=== PATIENT | male | born 1935 | race Caucasian/White ===

== ENCOUNTER 2016-10-01 16:24 | Inpatient (IN) | payer MEDICARE, MEDICAID ==
--- NOTE | 2016-10-01 16:46 | ED Physician Chart ---
Chief Complaint/HPI - Patient Information Date Seen:: 10/01/16 Time Seen:: 16:30 Chief Complaint:: urinary frequency and restless History of Present Illness:: pt sent from [place] for allegedly having urineary frequency and also has had a pattern of difficult behavior lately. he seems to be somewhat demented and is not oriented. he denies acute pain. he says he has had urine frequency. no known fever or gi distress. no hx of trauma or acute mental status change Allergies:: Allergies Allergy/AdvReac Type Severity Reaction Status Date / Time No Known Allergies Allergy Verified 05/20/16 22:23 Historian:: Patient Review of Systems - Review of Systems General/Constitutional: No fever, No chills, No weight loss, No weakness, No diaphoresis, No edema, No loss of appetite Skin: No skin lesions, No rash, No bruising Head: No headache, No light-headedness Eyes: No loss of vision, No pain, No diplopia ENT: No earache, No nasal drainage, No sore throat, No tinnitus Neck: No neck pain, No swelling, No thyromegaly, No stiffness, No mass noted Cardio Vascular: No chest pain, No palpitations, No PND, No orthopnea, No edema Pulmonary: No SOB, No cough, No sputum, No wheezing GI: No nausea, No vomiting, No diarrhea, No pain, No melena, No hematochezia, No constipation, No hematemesis G/U: No dysuria, No frequency, No hematuria Musculoskeletal: No bone or joint pain, No back pain, No muscle pain Endocrine: No polyuria, No polydipsia Psychiatric: No prior psych history, No depression, No anxiety, No suicidal ideation Hematopoietic: No bruising, No lymphadenopathy Allergic/Immuno: No urticaria, No angioedema Neurological: No syncope, No focal symptoms, No weakness, No paresthesia, No headache, No seizure, No dizziness, Confusion (dementia?), No vertigo Past Medical History - Past Medical History Past Medical History: Dementia, Other (?) Social History: Care Facility Psychiatricy History: Dementia Family Medical History - Family Member Daughter History Unknown: Yes Mother History Unknown: Yes Physical Exam - Physical Examination General/Constitutional: Awake, Well-developed, well-nourished, Alert, No distress, Non-toxic appearing Head: Atraumatic Eyes: Lids, conjuctiva normal, PERRL, EOMI Skin: Nl inspection, No rash, No skin lesions, No ecchymosis, Well hydrated, No lymphadenopathy ENMT: External ears, nose nl, Nasal exam nl, Lips, teeth, gums nl Neck: Nontender, Full ROM w/o pain, No JVD, No nuchal rigidity, No bruit, No mass, No stridor Respiratory: Nl effort/Exclusion, Clear to Auscultation, No Wheeze/Rhonchi/Rales Cardio Vascular: RRR, No murmur, gallop, rubs, NL S1 S2 GI: No tenderness/rebounding/guarding, No organomegaly, No hernia, Normal BS's, Nondistended, No mass/bruits, No McBurney tenderness : No CVA tenderness Extremities: No tenderness or effusion, Full ROM, normal strength in all extremities, No edema, Normal digits & nails Neuro/Psych: Alert/oriented, DTR's symmetric, Normal sensory exam, Normal motor strength, Mood normal, No focal deficits Other Neuro/Psych comments:: pt seems confused..? some dementia pt lays w b eyes closed and does not acknowldge me or respond to my qs (even in iranian)..he does however answer qs for the tech who repeats rachael qs beside me however even her interpretation is he doesnt make sense at least 1/2 of the time. Misc: normal gait, Normal back, No paraspinal tenderness Labs/Radiology/EKG Results - Lab Results Results: Laboratory Tests 10/01/16 10/01/16 10/01/16 16:40 16:40 16:40 WBC 11.9 H RBC 4.78 Hgb 13.5 Hct 41.5 MCV 86.9 MCH 28.3 MCHC Differential 32.6 RDW 15.0 Plt Count 313 MPV 8.6 Neutrophils % 64.6 Lymphocytes % 28.0 Monocytes % 5.8 Eosinophils % 0.9 Basophils % 0.7 Sodium 138 Potassium 3.6 Chloride 101 Carbon Dioxide 26.2 Anion Gap 14.4 BUN 19 Creatinine 0.9 Est GFR ( Amer) TNP Est GFR (Non-Af Amer) TNP BUN/Creatinine Ratio 21.1 Glucose 114 H Calcium 9.7 Total Bilirubin 1.4 H AST 11 L ALT 8 Alkaline Phosphatase 51 Total Protein 7.2 Albumin 4.1 L Globulin 3.1 Albumin/Globulin Ratio 1.3 Triglycerides 144 Cholesterol 213 H LDL Cholesterol Direct 151 HDL Cholesterol 37 TSH 3.70 Urine Source Urine Color Urine Clarity Urine pH Ur Specific [place] Urine Protein Urine Glucose (UA) Urine Ketones Urine Blood Urine Nitrate Urine Bilirubin Urine Urobilinogen Ur Leukocyte Esterase Urine RBC Urine WBC Ur Epithelial Cells Urine Bacteria 10/01/16 17:20 WBC RBC Hgb Hct MCV MCH MCHC Differential RDW Plt Count MPV Neutrophils % Lymphocytes % Monocytes % Eosinophils % Basophils % Sodium Potassium Chloride Carbon Dioxide Anion Gap BUN Creatinine Est GFR ( Amer) Est GFR (Non-Af Amer) BUN/Creatinine Ratio Glucose Calcium Total Bilirubin AST ALT Alkaline Phosphatase Total Protein Albumin Globulin Albumin/Globulin Ratio Triglycerides Cholesterol LDL Cholesterol Direct HDL Cholesterol TSH Urine Source [place] Urine Color YELLOW Urine Clarity CLOUDY Urine pH 6.0 Ur Specific [place] 1.020 Urine Protein 100 H Urine Glucose (UA) NEGATIVE Urine Ketones TRACE Urine Blood MODERATE H Urine Nitrate NEGATIVE Urine Bilirubin NEGATIVE Urine Urobilinogen 1.0 Ur Leukocyte Esterase MODERATE H Urine RBC 10-25 H Urine WBC 50-100 H Ur Epithelial Cells NONE SEEN Urine Bacteria MODERATE - EKG Interpretations EKG Time:: 17:00 Rate & Rhythm: nsr 92 [place]: 7 Intervals: no st/t changes Comments:: wnl ED Septic Shock - . Is Septic Shock (SBP<90, OR Lactate>4 mmol\L) present?: No Reassessment (Disposition) - Reassessment Reassessment:: case dw dr faith..will admit for uti/agitation...asked if he can call back in 20 min. Reassessment Condition:: Unchanged - Diagnosis Diagnosis:: 1 uti 2 agitation - Patient Disposition Condition at Disposition:: Unchanged
[2016-10-01 16:58] LABS: % BASOPHILS 0.7 % (0.0-2.0); % EOSINOPHILS 0.9 % (0.0-5.0); % MONOCYTES 5.8 % (2.0-10.0); % NEUTROPHILS 64.6 % (40.0-80.0); HEMATOCRIT 41.5 % (39.0-49.0); HEMOGLOBIN 13.5 gm/dL (12.6-17.4); MEAN CELL VOLUME 86.9 fl (80-99); MEAN CORPUSCULAR HEMOGLOBIN 28.3 pg (27.0-31.0); MEAN CORPUSCULAR HGB CONC 32.6 pg (28.0-36.0); MEAN PLATELET VOLUME 8.6 fl; NEUTROPHILE ABSOLUTE 7.7 Th/cmm (1.8-8.0); PLATELET COUNT 313 Th/cmm (150-400); RED BLOOD COUNT 4.78 Mil/cmm (3.80-5.80); WHITE BLOOD COUNT 11.9 Th/cmm (4.8-10.8)
[2016-10-01 17:05] LABS: ALB/GLOB RATIO 1.3 (1.0-1.8); ALKALINE PHOSPHATASE 51 U/L (34-104); ANION GAP 14.4 (7.0-16.0); BILIRUBIN,TOTAL 1.4 mg/dL (0.3-1.0); BUN - UREA NITROGEN 19 mg/dL (7-25); BUN/CREATININE RATIO 21.1; CALCIUM SERUM 9.7 mg/dL (8.6-10.3); CARBON DIOXIDE 26.2 mEq/L (21.0-31.0); CHLORIDE 101 mEq/L (98-107); CHOLESTEROL 213 mg/dL (<200); CREATININE - SERUM 0.9 mg/dL (0.7-1.3); GLUCOSE 114 mg/dL (70-105); POTASSIUM SERUM 3.6 mEq/L (3.5-5.1); SGOT 11 U/L (13-39); SGPT/ALT 8 U/L (7-52); SODIUM SERUM 138 mEq/L (136-145); TRIGLYCERIDES 144 mg/dL (<150)
[2016-10-01 18:09] LABS: URINE BILIRUBIN NEGATIVE (NEGATIVE); URINE BLOOD MODERATE (NEGATIVE); URINE COLOR YELLOW; URINE GLUCOSE (UA) NEGATIVE (NEGATIVE); URINE KETONE TRACE mg/dL (NEGATIVE); URINE PROTEIN 100 mg/dL (NEGATIVE)
[2016-10-01 18:12] LABS: URINE BACTERIA MODERATE /hpf (NONE SEEN); URINE EPITHELIAL CELLS NONE SEEN /lpf (FEW); URINE WBC 50-100 /hpf (0-5)
[2016-10-01] MEDS ORDERED: D5-0.9%NS 1,000 ML IV SCH (21:00)
[2016-10-01] MEDS ORDERED: Magnesium Hydroxide (MOM) 30 mL UDC PO PRN (21:01)
[2016-10-01] MEDS: INSULIN ASPART SLIDING SCALE 100 UNITS/ML UNIT SUBQ SCH (22:02)
[2016-10-01 22:43] VITALS: BP 136/80
--- NOTE | 2016-10-02 04:57 | Admit Criteria Form ---
Admit Criteria Forms - Admit Criteria Diagnosis: URINARY COMPLICATIONS Clinical Indications for Inpatient Care (Place 'X' for any and all applicable criteria): Ongoing inpatient care may be indicated for urinary complications with ANY ONE of the following: [X ]I. Urinary tract infection requiring inpatient care as indicated by ANY ONE of the following(8)(19)(20): [ ]a) Severe symptoms (eg, high fever, severe pain) [ ]b) Vomiting or dehydration requiring ongoing inpatient care [X ]c) IV antibiotic needs that cannot be managed at lower level of care [ ]d) Hemodynamic instability [ ]e) Obstruction of collecting system by stone or tumor [ ]II. Urinary retention requiring drainage or surgery (3)(4)(5)(17)(18) [ ]III. Renal failure (Use Renal Failure Criteria for further information.) [ ]IV. Oliguria(30) [ ]V. Post obstructive diuresis requiring close monitoring of urine output and intravenous compensation for excessive fluid losses(33) Extended stay beyond goal length of stay for primary condition may be needed until ALL of the following are present(3)(4)(5)(8): [ ]a) Renal function (creatinine) at baseline, or daily decreases in creatinine consistent with renal function return [ ]b) Voiding adequately or with urinary catheter or percutaneous suprapubic tube and management regimen in place that is performable at lower level of care. [ ]c) Urine output adequate [ ]d) Fever absent or resolving [ ]e) Infection absent or treatable at next level of care The original [employer] content created by [employer] has been revised. The portions of the content which have been revised are identified through the use of italic text or in bold, and [facility] has neither reviewed nor approved the modified material. All other unmodified content is copyright [employer] [facility] [employer] Please see references footnoted in the original [facility] [employer] edition 2016 Admit Criteria Met?: Yes
[2016-10-02 06:02] LABS: % BASOPHILS 0.9 % (0.0-2.0); % EOSINOPHILS 1.1 % (0.0-5.0); % LYMPHOCYTES 25.6 % (20.0-50.0); % MONOCYTES 8.9 % (2.0-10.0); % NEUTROPHILS 63.5 % (40.0-80.0); HEMATOCRIT 39.4 % (39.0-49.0); HEMOGLOBIN 13.2 gm/dL (12.6-17.4); MEAN CELL VOLUME 86.3 fl (80-99); MEAN CORPUSCULAR HEMOGLOBIN 28.8 pg (27.0-31.0); MEAN CORPUSCULAR HGB CONC 33.4 pg (28.0-36.0); MEAN PLATELET VOLUME 8.9 fl; NEUTROPHILE ABSOLUTE 5.9 Th/cmm (1.8-8.0); PLATELET COUNT 283 Th/cmm (150-400); RED BLOOD COUNT 4.57 Mil/cmm (3.80-5.80); RED CELL DISTRIBUTION WIDTH 15.2 % (11.5-20.0)
[2016-10-02 06:14] LABS: WHITE BLOOD COUNT 9.3 Th/cmm (4.8-10.8)
[2016-10-02 06:31] LABS: ALB/GLOB RATIO 1.2 (1.0-1.8); ALKALINE PHOSPHATASE 45 U/L (34-104); ANION GAP 8.3 (7.0-16.0); BILIRUBIN,TOTAL 1.5 mg/dL (0.3-1.0); BUN - UREA NITROGEN 16 mg/dL (7-25); CARBON DIOXIDE 27.3 mEq/L (21.0-31.0); CHLORIDE 106 mEq/L (98-107); CREATININE - SERUM 0.8 mg/dL (0.7-1.3); GLUCOSE 128 mg/dL (70-105); POTASSIUM SERUM 3.6 mEq/L (3.5-5.1); SGOT 9 U/L (13-39); SGPT/ALT 6 U/L (7-52); SODIUM SERUM 138 mEq/L (136-145)
[2016-10-02] MEDS: INSULIN ASPART SLIDING SCALE 100 UNITS/ML UNIT SUBQ SCH (06:56)
[2016-10-02] MEDS: Multivitamin w/ Minerals Tab PO SCH (09:28)
[2016-10-02 14:19] LABS: HEP B CORE IGM Negative (Negative); HEP C ANTIBODY <0.1 s/co ratio (0.0-0.9)
--- NOTE | 2016-10-02 15:51 | History & Physical ---
ADMIT DATE: 10/01/2016 PATIENT IDENTIFICATION: The patient is an 81-year-old male. CHIEF COMPLAINT: Sent to Emergency Room for increased frequency of urination and restlessness. HISTORY OF PRESENT ILLNESS: An 81-year-old male who resides at [facility], has a diagnosis of Parkinson disease, coronary artery disease, detrusor instability with BPH, anxiety, depression, Alzheimer's dementia noted by nursing staff that the patient was extremely agitated and having increased frequency of urination. The patient was advised to go to Emergency Room 2 days ago, but the patient did not go until yesterday. The patient had a worsening of the symptoms. The patient was brought into the Emergency Room where the patient was seen by ER MD. Workup did reveal the patient had evidence of urinary tract infection along with agitation. The patient is admitted to the hospital for further treatment. PAST MEDICAL HISTORY: Remarkable for: 1. Atherosclerotic heart disease. 2. Parkinson disease. 3. Alzheimer dementia. 4. BPH. 5. Overactive bladder. 6. DJD. 7. Psychosis. 8. Fall risk. MEDICATIONS AT HOME: Tylenol, lorazepam, ____, Proscar, magnesium, metoprolol, multivitamin, Risperdal. ALLERGIES: The patient is not allergic to medications. SOCIAL HISTORY: The patient lives in a residential. The patient has no smoking cigarette, alcohol or drug use. FAMILY MEDICAL HISTORY: Unavailable. REVIEW OF SYSTEMS: Unable to obtain. PHYSICAL EXAMINATION: GENERAL: The patient is alert, awake, lying in the bed without any acute distress. VITAL SIGNS: Temperature 97.1, pulse 88, respiratory rate 18, blood pressure 154/88. HEENT: Normocephalic, atraumatic. Extraocular muscles are intact. Tongue was pink and coated. Poor dentition noted. NECK: Supple, no JVD, no hepatojugular reflux. No lymphadenopathy, thyromegaly. HEART: Both heart sounds are regular. No S3, no S4. CHEST: Lung equal in expansion with decreased breath sounds at both bases. ABDOMEN: Soft. No guarding, no rigidity. Bowel sounds are present. No palpable mass. EXTREMITIES: No edema. Peripheral pulses +1. No calf tenderness. NEUROLOGIC: Spasticity involving in upper and lower extremity noted. Mini mental status score, the patient score 0 out of 30. AVAILABLE LABORATORY DATA: White count of 11.9, hemoglobin 13.5, platelet count 313. Glucose 114. BUN and creatinine is 19 and 0.9. ALT and AST 11 and 8. Cholesterol was checked 213. Urine has 100+ protein, moderate blood, moderate leukocyte esterase positive, 50-100 wbc, moderate bacteria was also noted, urine rbc was 10-25. Chest x-ray, no infiltrate, no congestion. EKG, no ST-T changes representing acute ischemia. CLINICAL IMPRESSION: 1. Complicated urinary tract infections. 2. Agitation and restlessness secondary to encephalopathy on baseline mental status of Alzheimer dementia and Parkinson disease. 3. Psychotic disorder. 4. Alzheimer dementia. 5. Parkinson disease. 6. Benign prostatic hypertrophy. 7. Atherosclerotic heart disease. 8. Degenerative joint disease. 9. High risk for fall. PLAN: 1. Admit this patient to Med/Surg floor. 2. IV antibiotic. 3. IV fluid. 4. Appropriate home medicine reconciliation. 5. Psychiatric consultation. 6. Blood cultures and urine cultures have been done in the Emergency Room. We will wait for the urine cultures to come back and blood cultures to come back for now. Continue to provide fall precautions, nutritional support, general nursing care and follow salon sales consultant recommendations as well. Care plan has been reviewed and discussed. JOB# [id number]
--- NOTE | 2016-10-02 16:57 | Consultation ---
DATE OF CONSULTATION: 10/02/2016 AGE: 34. SEX: Male. PHYSICIAN: Dr. Jerome. HOUSE DECORATOR: Dr. Sen. REASON FOR THE CONSULT: Evaluating mental status and adjusting psychotropic medications. HISTORY OF PRESENT ILLNESS: The patient is an 81-year-old male who was admitted to the hospital and Dr. Jerome asked me to evaluate the patient's condition. The patient basically was admitted for urinary tract infection and restlessness. Chart reviewed and patient interviewed and discussed the patient's condition with the staff. The patient has been sedated and has been sleepy. Also, has been having anxiety and restlessness at times. Also have episodes of anger and irritability. During my interview, the patient was sedated and he was not able to answer any of my questions. It seems that the patient has history of Parkinson disease and my trial to interview the patient was not successful. The patient is taking Risperdal in a dose 0.5 mg at that time with no side effects. PAST PSYCHIATRIC HISTORY: The patient has history of what seems to be dementia with psychosis. PAST MEDICAL HISTORY: The patient admitted with urinary tract infection. SOCIAL HISTORY: The patient lives in [facility]. No drug use or alcohol use. MENTAL STATUS EXAM: The patient appears his stated age. Anxious. Flat affect. Sedated at this time. The patient did not answer questions regarding hallucinations or delusions or regarding suicide or homicide. The patient is sedated and unable to assess the rest of the mental status exam. ASSESSMENT: PRIMARY DIAGNOSIS: Unspecified psychosis. SECONDARY DIAGNOSIS: Dementia with psychosis. TREATMENT PLAN AND RECOMMENDATIONS: At this time, we will continue Risperdal. We will reevaluate. Thanks to Dr. Jerome and we will follow up with you. JOB# [id number]
[2016-10-03 05:59] LABS: % BASOPHILS 4.2 % (0.0-2.0); % EOSINOPHILS 1.8 % (0.0-5.0); % LYMPHOCYTES 27.1 % (20.0-50.0); % MONOCYTES 7.4 % (2.0-10.0); % NEUTROPHILS 59.5 % (40.0-80.0); HEMATOCRIT 40.3 % (39.0-49.0); HEMOGLOBIN 13.3 gm/dL (12.6-17.4); MEAN CELL VOLUME 86.1 fl (80-99); MEAN CORPUSCULAR HEMOGLOBIN 28.5 pg (27.0-31.0); MEAN CORPUSCULAR HGB CONC 33.1 pg (28.0-36.0); MEAN PLATELET VOLUME 8.9 fl; NEUTROPHILE ABSOLUTE 6.3 Th/cmm (1.8-8.0); PLATELET COUNT 272 Th/cmm (150-400); RED BLOOD COUNT 4.68 Mil/cmm (3.80-5.80); WHITE BLOOD COUNT 10.5 Th/cmm (4.8-10.8)
[2016-10-03 06:12] LABS: ALB/GLOB RATIO 1.2 (1.0-1.8); ALKALINE PHOSPHATASE 47 U/L (34-104); ANION GAP 10.3 (7.0-16.0); BILIRUBIN,TOTAL 1.4 mg/dL (0.3-1.0); BUN - UREA NITROGEN 14 mg/dL (7-25); BUN/CREATININE RATIO 15.6; CALCIUM SERUM 9.4 mg/dL (8.6-10.3); CARBON DIOXIDE 28.6 mEq/L (21.0-31.0); CHLORIDE 106 mEq/L (98-107); CREATININE - SERUM 0.9 mg/dL (0.7-1.3); GLUCOSE 134 mg/dL (70-105); POTASSIUM SERUM 4.9 mEq/L (3.5-5.1); SGOT 11 U/L (13-39); SODIUM SERUM 140 mEq/L (136-145)
[2016-10-03 06:31] LABS: SGPT/ALT < 3 U/L (7-52)
--- NOTE | 2016-10-03 08:13 | Progress Notes ---
DATE: 10/03/2016 SUBJECTIVE: Chart reviewed and the patient interviewed. Also discussed the patient's condition with the staff and reviewed records and labs. The patient still seems to be slightly sedated and sleepy. The patient also is withdrawn and is still not able to answer any of my questions because of slight sedation. The patient behavioral problems so far, and has been compliant with treatment and with his medications. ASSESSMENT: We will continue monitoring his behavior, and we will continue to work on adjusting psychotropic medications and followup. JOB# [id number]
[2016-10-03] MEDS: Multivitamin w/ Minerals Tab PO SCH (08:37)
--- NOTE | 2016-10-19 23:19 | Discharge Summary ---
DATE OF DISCHARGE: 10/03/2016 Date of transfer to Geropsych Unit is 10/04/2016. PRINCIPAL DIAGNOSES: 1. Psychotic disorder exacerbation. 2. Complicated urinary tract infection by Muriel. 3. Alzheimer dementia. 4. Parkinson's disease. 5. Benign prostatic hyperplasia. 6. Degenerative joint disease. 7. Atherosclerotic heart disease. 8. . 9. Coronary artery disease. BRIEF STATEMENT FOR THE REASON FOR ADMISSION: The patient is an 81-year-old male who resides in a long term sent to the Emergency Room for evaluation of increasing agitation and restlessness and increased frequency of urination. The patient was worked up on the medical floor and noted to have a complicated UTI along with psych disorder exacerbation. The patient was appropriately treated with medications, appropriately treated with antibiotic, and the patient was stabilized, and the patient was transferred to Geropsych Unit for further psychiatric care. At the time of discharge, all of his meds were reconciliated. JOB# [id number]
== END 2016-10-03 16:45 | DRG 689 ==
LOC: ER 16:24 → MSI 20:00
PROVIDERS: ADMIT Internal Medicine; ATTEND Internal Medicine
DX: N39.0 Urinary tract infection, site not specified (principal); G93.40 Encephalopathy, unspecified; G20 Parkinson's disease; G30.9 Alzheimer's disease, unspecified; F02.80 Dementia in other diseases classified elsewhere, unspecified severity, without behavioral disturbance, psychotic disturbance, mood disturbance, and anxiety; N40.0 Benign prostatic hyperplasia without lower urinary tract symptoms; I25.10 Atherosclerotic heart disease of native coronary artery without angina pectoris; M19.90 Unspecified osteoarthritis, unspecified site; F29 Unspecified psychosis not due to a substance or known physiological condition; F41.9 Anxiety disorder, unspecified; F32.9 Major depressive disorder, single episode, unspecified; Z91.81 History of falling
CPT/HCPCS: 36415-UA; 80053-TC; 80061-TC; 80074-90; 81001-TC; 82948-90; 83735-TC; 84443-TC; 85025-TC; 86592-TC; 87086-90; 93005; 97530; J0696; J1815; J2060; J7042; X3904; Z7610